=== PATIENT | male | born 1970 | race Caucasian/White ===

== ENCOUNTER 2020-02-19 15:20 | Emergency (ER) | payer SELFPAY ==
[2020-02-19 16:59] LABS: #Eosinphils 0.2 thou/uL (0.0-0.7); #Lymphocytes 0.9 thou/uL (1.20-3.40); #Monocytes 0.6 thou/uL (0.11-0.59); #Neutrophils 5.5 thou/uL (1.40-6.50); %Basophils 0.1 % (0.0-1.0); %Eosinophils 2.7 % (0.0-10.0); %Lymphocytes 12.3 % (21.0-51.0); %Monocytes 8.3 % (0.0-10.0); %Neutrophils 76.5 % (42.0-75.0); Hemoglobin 15.1 g/dL (14.0-18.0); Mean Corpuscular HGB CONC 33.7 g/dL (32.0-36.0); Mean Corpuscular Hemoglobin 33.1 pg (27.0-31.0); Mean Corpuscular Volume 98.3 fL (78.0-98.0); Mean Platelet Volume 6.4 fL (7.4-10.4); Platelet Count 238 thou/uL (130-400); RBC Distribution Width 11.9 % (11.5-14.5); Red Blood Cell (RBC) Count 4.56 mill/uL (4.70-6.10); White Blood Cell (WBC) Count 7.2 thou/uL (4.8-10.8)
[2020-02-19] MEDS ORDERED: Ketorolac Tromethamine 30 MG/ML VIAL ONE (17:13)
[2020-02-19 17:20] LABS: ALT (SGPT) 38 U/L (8-55); AST (SGOT) 25 U/L (5-34); Alkaline Phosphatase 88 U/L (40-110); Anion Gap 15 mmol/L (10-20); BUN (Urea Nitrogen) 12 mg/dL (8.4-25.7); Bilirubin, Total 0.3 mg/dL (0.2-1.2); CK (CPK) 59 U/L (30-200); Calc. Creatinine Clearance 0 mL/min (70-130); Carbon Dioxide 26 mmol/L (22-29); Chloride 100 mmol/L (98-107); Estimated GFR-MDRD 90; Globulin 2.8 g/dL (2.4-3.5); Glucose 176 mg/dL (70-105); Potassium 4.2 mmol/L (3.5-5.1); Protein, Total 6.8 g/dL (6.0-8.3); Sodium 137 mmol/L (136-145)
--- NOTE | 2020-02-19 17:48 | ULT ---
Venous duplex sonogram left lower extremity HISTORY: Left leg pain and edema. FINDINGS: The left common femoral vein and greater saphenous junction were evaluated along with the f emoral, deep femoral, popliteal, and posterior tibial vein. Enlarged, reactive appearing lymph node at the left groin measures up to 3.9 cm. Greater saphenous vein was imaged in region of palpable concern. It is compressible without thrombus apparent. IMPRESSION : No evidence of DVT.
[2020-02-19] MEDS ORDERED: Amoxicillin/Potassium Clav 875 MG TAB ONE (18:21)
== END 2020-02-19 18:38 | disposition home or self-care (01) ==
LOC: ERS 15:20
DX: S71.152A Open bite, left thigh, initial encounter (principal); I80.3 Phlebitis and thrombophlebitis of lower extremities, unspecified; L03.116 Cellulitis of left lower limb; I10 Essential (primary) hypertension; F32.9 Major depressive disorder, single episode, unspecified; F17.220 Nicotine dependence, chewing tobacco, uncomplicated; W54.0XXA Bitten by dog, initial encounter
CPT/HCPCS: 36415; 80053; 82550; 84484; 85025; 85379; 93005; 96374; J1885

== ENCOUNTER 2020-12-20 21:39 | Observation (INO) | payer OTHER, SELFPAY ==
[~2020-12-20 21:39] MED LIST: Iopamidol-370 76% 500 ML 1 ML ONE
[2020-12-20 22:06] LABS: #Eosinphils 0.2 thou/uL (0.0-0.7); #Lymphocytes 1.4 thou/uL (1.20-3.40); #Monocytes 0.5 thou/uL (0.11-0.59); #Neutrophils 4.8 thou/uL (1.40-6.50); %Basophils 0.1 % (0.0-1.0); %Eosinophils 3.3 % (0.0-10.0); %Lymphocytes 20.3 % (21.0-51.0); %Monocytes 7.2 % (0.0-10.0); %Neutrophils 69.2 % (42.0-75.0); Hemoglobin 15.4 g/dL (14.0-18.0); Mean Corpuscular HGB CONC 35.9 g/dL (32.0-36.0); Mean Corpuscular Hemoglobin 35.5 pg (27.0-31.0); Mean Corpuscular Volume 98.7 fL (78.0-98.0); Mean Platelet Volume 6.7 fL (7.4-10.4); Platelet Count 195 thou/uL (130-400); RBC Distribution Width 11.7 % (11.5-14.5); Red Blood Cell (RBC) Count 4.34 mill/uL (4.70-6.10); White Blood Cell (WBC) Count 6.9 thou/uL (4.8-10.8)
[2020-12-20] MEDS ORDERED: Morphine 4 MG/ML VIAL ONE (22:09)
[2020-12-20] MEDS ORDERED: Ketorolac Tromethamine 30 MG/ML VIAL ONE (22:10)
[2020-12-20] MEDS ORDERED: Boostrix 0.5 ML (Tdap) VIAL ONE (22:10)
[2020-12-20 22:19] LABS: Acetaminophen Less than 6.0 mcg/mL (10.0-30.0); Alcohol 89 mg/dL (Less than 10); Salicylate Less than 8.0 mg/dL (15.0-30.0)
[2020-12-20 22:20] LABS: ALT (SGPT) 56 U/L (8-55); AST (SGOT) 46 U/L (5-34); Albumin 4.1 g/dL (3.5-5.0); Alkaline Phosphatase 89 U/L (40-110); Anion Gap 16 mmol/L (10-20); BUN (Urea Nitrogen) 19 mg/dL (8.4-25.7); Bilirubin, Total 0.3 mg/dL (0.2-1.2); Calc. Creatinine Clearance 0 mL/min (70-130); Calcium 9.1 mg/dL (7.8-10.44); Carbon Dioxide 19 mmol/L (22-29); Chloride 104 mmol/L (98-107); Globulin 3.3 g/dL (2.4-3.5); Glucose 155 mg/dL (70-105); Potassium 3.6 mmol/L (3.5-5.1); Protein, Total 7.4 g/dL (6.0-8.3); Sodium 135 mmol/L (136-145)
[2020-12-21] MEDS ORDERED: Dextrose 50% Abboject 50 ML SYRINGE SLOW IVP PRN (00:09)
[2020-12-21] MEDS ORDERED: Morphine 2 MG/ML VIAL SLOW IVP PRN (00:09)
[2020-12-21] MEDS ORDERED: Ondansetron PF 4 MG/2 ML Vial IVP PRN (00:09)
[2020-12-21] MEDS ORDERED: Dextrose 5% in Water 1,000 ML IV PRN (00:09)
[2020-12-21] MEDS ORDERED: Cyclobenzaprine 10 MG TAB PO PRN (00:13)
[2020-12-21] MEDS ORDERED: Ibuprofen 800 MG TAB PO PRN ×2 (00:13→21:27)
[2020-12-21] MEDS ORDERED: traMADol HCl 50 MG TAB PO PRN ×2 (00:13→21:35)
[2020-12-21 00:53] LABS: Bacteria/HPF None Seen HPF (None Seen); Bilirubin Negative (Negative); Blood, Urine 1+ (Negative); Clarity Clear (Clear); Glucose, Urine (Dipstick) 150 mg/dL (Negative); Ketone, Urine Trace mg/dL (Negative); Leukocyte Negative Leu/uL (Negative); Nitrite Negative (Negative); Protein, Urine (Dipstick) 20 mg/dL (Neg-Trace); Squamous Epithelial None Seen HPF (0-3); Urobilinogen Normal mg/dL (Less than 2); WBC/HPF 0-3 HPF (0-3)
[2020-12-21 00:57] LABS: Amphetamine Detected (NotDetected); Barbiturates Screen Not Detected (NotDetected); Benzodiazepine Screen Not Detected (NotDetected); Cocaine Metabolite Screen Not Detected (NotDetected); Methadone Not Detected (NotDetected); Methamphetamine Detected (NotDetected); Opiate Screen Detected (NotDetected); Oxycodone Screen Not Detected (NotDetected); Phencyclidine (PCP) Not Detected (NotDetected); THC/Cannabinoid Screen Not Detected (NotDetected); Tricyclic Screen Not Detected (NotDetected)
[2020-12-21 01:06] LABS: Specific Gravity, Urine Greater than 1.060 (1.002-1.036)
[2020-12-21] MEDS: Sodium Chloride 0.9% 1,000 ML IV SCH ×3 (04:21→21:45)
[2020-12-21] MEDS: traMADol HCl 50 MG TAB PO SCH ×4 (04:23→20:34)
[2020-12-21] MEDS: Acetaminophen 500 MG TAB PO SCH ×4 (04:23→21:08)
[2020-12-21] MEDS: Oxazepam 10 MG CAP PO SCH ×3 (04:32→18:02)
[2020-12-21 04:53] VITALS: BMI 34.9
[2020-12-21] MEDS ORDERED: Thiamine 100 MG TAB PO SCH (09:00)
[2020-12-21] MEDS ORDERED: Folic Acid 1 MG TAB PO SCH (09:00)
[2020-12-21] MEDS ORDERED: Multivitamin W/ Minerals 1 TAB PO SCH (09:00)
[2020-12-21] MEDS ORDERED: Polyethylene Glycol 3350 17 GM Packet PO SCH (09:00)
[2020-12-21] MEDS: Senokot S 8.6-50 MG TAB PO SCH ×2 (09:37→21:08)
[2020-12-21] MEDS: Famotidine 20 MG TAB PO SCH ×2 (09:37→21:08)
[2020-12-21] MEDS ORDERED: Morphine 4 MG/ML VIAL IV SCH (10:00)
[2020-12-21 13:29] LABS: SARS-CoV-2 NAA Rapid Test Not Detected (NotDetected)
[2020-12-21] MEDS ORDERED: Lidocaine 1% w/Epinephrine 1:100K 20 ML VIAL ONE (15:17)
[2020-12-21] MEDS ORDERED: Chlorhexidine Gluconate 15 ML UDCUP SSP ONE (15:17)
[2020-12-21] MEDS ORDERED: Bacitracin Zinc Ointment 30 gm TUBE ONE (15:17)
[2020-12-21] MEDS ORDERED: Promethazine HCl 25 MG/ML VIAL IM PRN (17:17)
[2020-12-21] MEDS ORDERED: Promethazine HCl 25 MG/ML VIAL IVPB PRN (17:17)
[2020-12-21] MEDS ORDERED: Ondansetron HCl/PF 4 MG/2 ML Vial IVP PRN (17:17)
[2020-12-21] MEDS ORDERED: Meperidine HCl/PF 25 MG/ML VIAL SLOW IVP PRN (17:17)
[2020-12-21] MEDS ORDERED: Fentanyl 100 MCG/2 ML VIAL ONE (17:20)
[2020-12-21] MEDS ORDERED: Ophthalmic Irrigation Solution 15 ML ONE (19:00)
[2020-12-21] MEDS ORDERED: Maxitrol 0.1% Opth Oint 3.5 GM TUBE ONE (19:14)
[2020-12-21] MEDS ORDERED: Sodium Chloride 0.9% 10 ML ONE (19:31)
[2020-12-21] MEDS ORDERED: traMADol HCl 50 MG TAB ONE ×2 (20:33)
[2020-12-21] MEDS ORDERED: ANTIBIOTIC TOP PRN (21:24)
[2020-12-21 22:11] VITALS: BP 123/57; TEMP 97.7
[2020-12-22] MEDS ORDERED: ANTIBIOTIC TOP SCH (09:00)
[2020-12-22] MEDS ORDERED: Cephalexin 250 MG CAP PO SCH (09:00)
== END 2020-12-21 22:24 | disposition home or self-care (01) ==
LOC: ERS 21:39 → SURG B 12-21 00:09
PROVIDERS: ADMIT Specialist; ATTEND Surgery
PROC: 0JQ10ZZ Repair Face Subcutaneous Tissue and Fascia, Open Approach (ICD-10-PCS; principal; 2020-12-21)
DX: S01.81XA Laceration without foreign body of other part of head, initial encounter (principal); S01.112A Laceration without foreign body of left eyelid and periocular area, initial encounter; S01.111A Laceration without foreign body of right eyelid and periocular area, initial encounter; S06.0X0A Concussion without loss of consciousness, initial encounter; S02.2XXA Fracture of nasal bones, initial encounter for closed fracture; G89.11 Acute pain due to trauma; I10 Essential (primary) hypertension; K40.20 Bilateral inguinal hernia, without obstruction or gangrene, not specified as recurrent; K57.30 Diverticulosis of large intestine without perforation or abscess without bleeding; M25.78 Osteophyte, vertebrae; F17.220 Nicotine dependence, chewing tobacco, uncomplicated; T43.625A Adverse effect of amphetamines, initial encounter; E66.9 Obesity, unspecified; Z68.34 Body mass index [BMI] 34.0-34.9, adult; Z79.899 Other long term (current) drug therapy; Z20.822 Contact with and (suspected) exposure to COVID-19; V47.5XXA Car driver injured in collision with fixed or stationary object in traffic accident, initial encounter; Y93.C2 Activity, hand held interactive electronic device
CPT/HCPCS: 70450; 70486; 71045; 72125; 74177; 80053; 80306; 80307; 81003; 81015; 85025; 90471; 90715; 93005; 96365; 96375; 96376; G0378; G0390; J0690; J1885; J2270; J3010; J7050; Q9967; U0002

== ENCOUNTER 2021-03-23 19:34 | Emergency (ER) | payer SELFPAY | END 2021-03-23 20:10 | disposition left against medical advice (07) | LOC: ERS 19:34 | DX: Z53.21 Procedure and treatment not carried out due to patient leaving prior to being seen by health care provider (principal) ==

== ENCOUNTER 2021-05-20 12:27 | Emergency (ER) | payer SELFPAY ==
[2021-05-20 13:45] LABS: #Eosinphils 0.1 thou/uL (0.0-0.7); #Lymphocytes 0.5 thou/uL (1.20-3.40); #Neutrophils 7.7 thou/uL (1.40-6.50); %Basophils 0.1 % (0.0-1.0); %Eosinophils 1.4 % (0.0-10.0); %Monocytes 10.3 % (0.0-10.0); %Neutrophils 83.1 % (42.0-75.0); Hemoglobin 15.9 g/dL (14.0-18.0); Mean Corpuscular HGB CONC 33.3 g/dL (32.0-36.0); Mean Corpuscular Volume 99.1 fL (78.0-98.0); Mean Platelet Volume 6.6 fL (7.4-10.4); Platelet Count 195 thou/uL (130-400); RBC Distribution Width 12.1 % (11.5-14.5); Red Blood Cell (RBC) Count 4.83 mill/uL (4.70-6.10); White Blood Cell (WBC) Count 9.2 thou/uL (4.8-10.8)
[2021-05-20 14:04] LABS: ALT (SGPT) 45 U/L (8-55); AST (SGOT) 36 U/L (5-34); Albumin 4.2 g/dL (3.5-5.0); Alkaline Phosphatase 91 U/L (40-110); Anion Gap 14 mmol/L (10-20); BUN (Urea Nitrogen) 13 mg/dL (8.4-25.7); Bilirubin, Total 0.6 mg/dL (0.2-1.2); Calc. Creatinine Clearance 0 mL/min (70-130); Calcium 9.7 mg/dL (7.8-10.44); Carbon Dioxide 26 mmol/L (22-29); Chloride 97 mmol/L (98-107); Globulin 3.4 g/dL (2.4-3.5); Glucose 170 mg/dL (70-105); Protein, Total 7.6 g/dL (6.0-8.3); Sodium 133 mmol/L (136-145)
[2021-05-20 14:24] LABS: Prothrombin Time 13.1 sec (12.0-14.7)
== END 2021-05-20 16:50 | disposition home or self-care (01) ==
LOC: ERS 12:27
DX: L03.115 Cellulitis of right lower limb (principal); L29.9 Pruritus, unspecified; I45.2 Bifascicular block; I10 Essential (primary) hypertension
CPT/HCPCS: 36415; 71045; 80053; 83605; 84484; 85025; 85610; 93005

== ENCOUNTER 2023-01-24 17:00 | Outpatient (CLI) | payer SELFPAY | END 2023-01-24 17:01 | disposition home or self-care (01) | LOC: SLEEPLAB 17:00 | PROVIDERS: ATTEND Family Medicine | DX: G47.33 Obstructive sleep apnea (adult) (pediatric) (principal); G47.00 Insomnia, unspecified; E66.9 Obesity, unspecified; I10 Essential (primary) hypertension; F41.9 Anxiety disorder, unspecified; R53.83 Other fatigue; R06.83 Snoring | CPT/HCPCS: 95800 ==